=== PATIENT | male | born 1970 | race Caucasian/White ===

== ENCOUNTER 2016-11-02 15:16 | Emergency (ER) | payer OTHER ==
[2017-02-12] MEDS ORDERED: NORCO 10-325 T1 EACH PO (13:46)
== END 2016-11-02 16:55 | disposition home or self-care (01) ==
LOC: ER1 15:16
DX: M54.41 Lumbago with sciatica, right side (principal); Z88.0 Allergy status to penicillin
CPT/HCPCS: 96372; 99283; J1100; J1885

== ENCOUNTER → 2016-11-04 | Outpatient (CLI) | payer OTHER ==
[~2016-11-04] MED LIST: NORCO 10-325 T1 EACH PO
== END ==
LOC: KOH-I 12:39
DX: M54.40 Lumbago with sciatica, unspecified side (principal); M47.896 Other spondylosis, lumbar region
CPT/HCPCS: 72110

== ENCOUNTER 2021-02-16 11:56 | Emergency (ER) | payer OTHER ==
[2021-02-16 13:02] LABS: HEMOGLOBIN 14.9 gm/dl (14.0-17.5); RED BLOOD COUNT 4.55 M/UL (4.20-5.50); WHITE BLOOD COUNT 5.4 K/UL (4.5-11.0)
[2021-02-16 13:24] LABS: BUN/CREATININE RATIO 9 (0-10)
[2021-02-16] MEDS ORDERED: LEVOFLOXACIN500 MG PO (15:16)
== END 2021-02-16 15:27 | disposition home or self-care (01) ==
LOC: ER1 11:56
PROVIDERS: Physician Assistant Medical
DX: N39.0 Urinary tract infection, site not specified (principal); R31.0 Gross hematuria; Z88.0 Allergy status to penicillin
CPT/HCPCS: 80053; 81001; 85025; 85610; 87086; 99284; Q9967